=== PATIENT | female | born 1970 | race Caucasian/White ===

== ENCOUNTER 2021-09-30 10:53 | Outpatient (CLI) | payer BC, SELFPAY | END 2021-09-30 10:54 | disposition home or self-care (01) | PROVIDERS: PCP Family Medicine; Visit Provider Urology | DX: N39.3 Stress incontinence (female) (male) (principal); Z01.818 Encounter for other preprocedural examination | CPT/HCPCS: 87086; 87088 ==

== ENCOUNTER 2021-10-03 12:04 | Outpatient (CLI) | payer BC, SELFPAY ==
[2021-10-03 13:06] LABS: SARS-CoV-2 RNA PCR Negative
== END 2021-10-03 12:05 | disposition home or self-care (01) ==
PROVIDERS: PCP Family Medicine; Visit Provider Urology
DX: U07.1 COVID-19 (principal); Z20.822 Contact with and (suspected) exposure to COVID-19
CPT/HCPCS: C9803; U0003; U0005

== ENCOUNTER 2021-10-04 01:31 | Day surgery (SDC) | payer BC, SELFPAY ==
[2021-09-30 09:59] VITALS: BMI 31.1
--- NOTE | 2021-09-30 10:15 | PC.NURSE ---
Report to the Outpatient Waiting Room, entrance under the green pavilion located off [facility], at time 7:00 on date 10/04/21. OR Time: 9:00. - You and your visitor will be asked a series of questions to screen for COVID 19 for your protection. - Only one visitor is allowed at this time. - The patient visitor is requested to leave or wait in car when not with patient. - A mask is required within the hospital. Patients may have clear liquids (water, carbonated beverages, clear teas, apple juice) until 3 hours prior to surgery (6:00) with a maximum of 20 ounces. - No food from midnight until time of surgery Take the following medications with a SIP of water the morning of surgery: NONE Medications to discontinue per physician: N/A Date to take last dose: N/A Please no make-up, nail djiboutian, hairspray, perfume, deodorant, or body powder the day of surgery. No jewelry (including any body piercings) or valuables the day of surgery, leave them at home. Please take a shower or bath the night before, or the morning of, surgery with an antibacterial soap. Wear comfortable, loose fitting clothing. - Jewelry must be removed prior to entering the operating room. Rings and piercings that are not removed may be cut off. - The hospital will not accept responsibility for valuables. - Please leave all valuables, including medications, at home the day of surgery. If you are going home after surgery, a licensed flag car driver must drive you home. - NO public transportation without another adult. - We recommend that an adult stay with you for 24 hours following discharge. - We also recommend that you do not drive, make important decision, drink alcoholic beverages, or take any drugs that were not prescribed by your health care provider for at least 24 hours after your discharge time. Follow any additional instructions given to you from your surgeon. If you or anyone in your household have experienced Covid symptoms in the past week, please notify your surgeon or the nurse liaison at the phone number below for possible testing. Telephone instructions given to PT - ELIZABETH RIVERA and asked if any additional questions and then verbalized understanding. Patient advised to call surgeon office or pre surgery nurse liaison [phone] if any additional questions.
--- NOTE | 2021-10-03 12:09 | P.HP_ITS ---
H&P: HPI History of Present Illness Date/Time: 10/03/21 12:09 Chief Complaint: 51-year-old with confirmed stress incontinence desires surgical correction Review of Systems Review of Systems: negative except for history of present illness [facility] Social History Social History Smoking status: Never smoker Alcohol intake: current Drinks per week: 2 Substance use: never Substance use type: does not use Spiritual care concerns: No Meds Home Medications and Allergies Home Medications Medication Instructions Recorded Confirmed Type cetirizine 10 mg tablet 10 mg PO HS 09/30/21 09/30/21 History ezetimibe 10 mg tablet 1 tablet PO HS 09/30/21 09/30/21 History irbesartan 300 mg tablet 1 tablet PO HS 09/30/21 09/30/21 History magnesium oxide 400 mg (241.3 mg 1 tablet PO HS 09/30/21 09/30/21 History magnesium) tablet norethindrone 1 mg-ethinyl 1 tablet PO HS 09/30/21 09/30/21 History estradiol 20 mcg (21)-iron 75 mg (7) tablet (Aurovela Fe 1-20 (28)) rosuvastatin 10 mg tablet 1 tablet PO HS 09/30/21 09/30/21 History Allergies Allergy/AdvReac Type Severity Reaction Status Date / Time Sulfa (Sulfonamide Allergy Severe Hives Verified 09/30/21 09:54 Antibiotics) Exam Narrative: no acute distress normal breathing alert oriented x3 urethral hypermobility noted Assessment and Plan Assessment and plan (1) MAYA (stress urinary incontinence, female): Code(s): N39.3 - Stress incontinence (female) (male) Status: Acute Assessment and Plan: plan for urethral sling. Understands risks of bleeding, infection, damage to surrounding organs, persistent incontinence, recurrent incontinence, vaginal mesh extrusion, urinary tract mesh erosion, obstructive voiding requiring a secondary procedure, dyspareunia, agrees to proceed
--- NOTE | 2021-10-03 15:43 | WPDANESEPPF ---
Anes - Initial Pre Proc Eval Procedure: Operation Date: 10/04/21 09:00 Proposed Procedures p Urethral Sling - David Alaniz MD Date/Time: 10/03/21 15:43 Surgeon: David Alaniz MD Pre Op Diagnosis: Stress Incont Patient Data Age: 51 Gender: F Height: 1.57 m Weight: 77.11 kg Allergies Allergy/AdvReac Type Severity Reaction Status Date / Time Sulfa (Sulfonamide Allergy Severe Hives Verified 10/04/21 07:57 Antibiotics) Home Medications Medication Instructions Recorded Confirmed Type cetirizine 10 mg tablet 10 mg PO HS 09/30/21 10/04/21 History ezetimibe 10 mg tablet 1 tablet PO HS 09/30/21 10/04/21 History irbesartan 300 mg tablet 1 tablet PO HS 09/30/21 10/04/21 History magnesium oxide 400 mg (241.3 mg 1 tablet PO HS 09/30/21 10/04/21 History magnesium) tablet norethindrone 1 mg-ethinyl 1 tablet PO HS 09/30/21 10/04/21 History estradiol 20 mcg (21)-iron 75 mg (7) tablet (Aurovela Fe 1-20 (28)) rosuvastatin 10 mg tablet 1 tablet PO HS 09/30/21 10/04/21 History Patient hx anesthesia problems: post op nausea/vomiting Family hx anesthesia problems: none Results Review: All pre-operative results and documents have been reviewed as part of the pre-operative evaluation. [facility] Past Medical History Medical History (Updated 10/03/21 @ 15:44 by Mack Ahuja DO) GERD (gastroesophageal reflux disease) Hyperlipidemia Hypertension Migraine PONV (postoperative nausea and vomiting) PVC (premature ventricular contraction) Surgical History Surgical History (Updated 10/03/21 @ 15:44 by Mack Ahuja DO) History of appendectomy Social History Social History Smoking status: Never smoker Alcohol intake: current Drinks per week: 2 Substance use: never Substance use type: does not use Living arrangements: with family Spiritual care concerns: No Anes - Eval Final PreProcedure Day of Procedure 10/03/21 15:43 Patient weight: obese Heart: regular rate and rhythm Lungs: clear to auscultation Airway: Mallampati scale class II Neurological: alert and oriented Last oral intake: >/= 8 hours ASA classification: II Emergent: no Anesthetic plan: proceed Anesthesia type and monitoring: general GIVS and standard monitoring Results Review: All pre-operative results and documents have been reviewed as part of the pre-operative evaluation. Informed Consent: The patient's anesthetic plan and its attendant risks and benefits were discussed with the patient/family/POA. Questions were solicited and answers provided to the satisfaction of the patient/family/POA.
--- NOTE | 2021-10-04 07:11 | WPDHPUPDATE1 ---
History and Physical Update Update Date/Time: 10/04/21 07:11 History and Physical has been reviewed, including an updated exam of the patient. There are NO changes in the patient's condition. Risks, benefits, and alternatives have been discussed and questions answered. Patient agrees to proceed with procedure.
[2021-10-04 07:24] VITALS: BP 140/76; PULSE 78; RESP 16; TEMP 36.1; O2SAT 100
[2021-10-04] MEDS: LACTATED RINGERS 1,000 ML 30 ML IV CONT (08:18)
[2021-10-04] MEDS: ceFAZolin 2 GM/D5W 50 ML 2 GM/50 ML BAG IVPB (09:07)
[2021-10-04] MEDS: BUPIVACAINE/EPINEPHRINE 0.25% 50 ML VIAL 10 ML INFILTRATE (09:15)
[2021-10-04 09:46] VITALS: BP 120/68; PULSE 68; RESP 20
--- NOTE | 2021-10-04 09:57 | W.PM.PROC2 ---
Procedure Note - Detailed Date of Procedure 10/04/21 Pre-op Diagnosis Stress Incontinence Post-op Diagnosis Same Procedure Performed mid urethral sling cystoscopy Surgeon David Alaniz MD Indications This is a female with confirm stress urinary incontinence. She desires surgical correction. She understands the risks of bleeding, infection, injury to the urinary tract, vaginal mesh extrusion, urinary tract mesh erosion, obstructive voiding requiring a secondary procedure, hip and leg pain, dyspareunia, inability to improve overactive bladder symptoms. She agrees to proceed. Description of Procedure She was correctly identified. Informed consent obtained. She was brought the operating room. She was given appropriate anesthesia. She was given appropriate perioperative antibiotics. A time-out performed. I marked out the site of the inner thigh incisions. I anesthetized the skin and made those incisions. I anesthetized the anterior vaginal wall over the mid urethra. I made a 1 cm incision. I dissected out laterally taking great care not to injure the refilled vaginal wall. I passed the helical trocars. First on the left. Then on the right. I did this from the thigh incision towards the vaginal incision. The sling was connected to the trocars and brought out through the thigh incision. I tensioned the sling appropriately. I cut and the plastic sheaths. I then closed the incision with 2 0 Vicryl. I then re-examined the sulcus. The left sulcus looked appropriate. The right sulcus was somewhat thin. There is no exposed mesh but I could feel the sling just superficial to the skin. I decided to remove the sling and redo. I opened up the incision once again. I cut the sling at the midline and removed it. I then repassed my helical trocars 1st on the left then on the right from the thigh incision towards the vaginal incision. Sling was connected the trocar and brought out through the thigh incisions. I re-examined the sulcus and I was much happier bilaterally that the sling was in a deeper plane. I tensioned sling appropriately. I cut into the plastic sheaths. I then closed the incision with 2-0 Vicryl On cystoscopy there is no tumors or surgical artifact. There was no surgical artifact in the urethra. The urethra showed very poor urethral sphincter coaptation. I made my sling a little tighter by pulling on the sling arms. There was no leakage on Crede day after this was performed. I cut the excess sling material. Close incisions with glue. She was awakened and transferred to the PACU in stable condition. Implants Urethral sling Estimated Blood Loss 10 Drains No Packing No Pathology None sent Complications No immediate complications Condition Stable Disposition PACU
[2021-10-04 10:15] VITALS: BP 113/72; PULSE 70; RESP 16
[2021-10-04 10:45] VITALS: BP 120/68; PULSE 68; RESP 20
== END 2021-10-04 11:00 | disposition home or self-care (01) ==
PROVIDERS: PCP Family Medicine; Visit Provider Urology
PROC: (CPT 57288; principal; 2021-10-04 09:00)
DX: N39.3 Stress incontinence (female) (male) (principal); I10 Essential (primary) hypertension; E78.5 Hyperlipidemia, unspecified; K21.9 Gastro-esophageal reflux disease without esophagitis; I49.3 Ventricular premature depolarization; E66.9 Obesity, unspecified; Z68.29 Body mass index [BMI] 29.0-29.9, adult
CPT/HCPCS: 57288; A9270; C1771; J0690; J1100; J1940; J2250; J2405; J2704; J3010; J7030; J7120